=== PATIENT | male | born 1990 | race Caucasian/White ===

== ENCOUNTER 2016-03-15 08:51 | Emergency (ER) | payer SELFPAY ==
--- NOTE | 2016-03-15 10:12 | ER Document Report ---
ED General - General Chief Complaint: Flu Symptoms Stated Complaint: FEVER Mode of Arrival: Ambulatory Information source: Patient Notes: 25-year-old male presents with complaints of body aches dry cough. Pt admits to nausea nd vomiting pt notes gf has influenza; TRAVEL OUTSIDE OF THE [place] IN LAST 30 DAYS: No - HPI Onset: Yesterday Onset/Duration: Sudden Quality of pain: Achy Severity: Mild Pain Level: 1 Associated symptoms: Body/muscle aches, Nausea, Vomiting Exacerbated by: Denies Relieved by: Denies Similar symptoms previously: No Recently seen / treated by doctor: No - Related Data Allergies/Adverse Reactions: No Known Allergies Allergy (Verified 03/15/16 08:58) Past Medical History - Social History Smoking Status: Unknown if Ever Smoked Cigarette use (# per day): No Chew tobacco use (# tins/day): No Smoking Education Provided: No Frequency of alcohol use: Occasional Drug Abuse: None Family History: Reviewed & Not Pertinent Patient has suicidal ideation: No Patient has homicidal ideation: No Renal/ Medical History: Denies: Hx Peritoneal Dialysis Surgical Hx: Negative - Immunizations Hx Diphtheria, Pertussis, Tetanus Vaccination: Yes Review of Systems - Review of Systems Notes: REVIEW OF SYSTEMS: CONSTITUTIONAL : Denies fever, chills, or sweats. Denies recent illness. EENT: Denies eye, ear, throat, or mouth pain or symptoms. Denies nasal or sinus congestion or discharge. Denies throat, tongue, or mouth swelling or difficulty swallowing. CARDIOVASCULAR: Denies chest pain. Denies palpitations or racing or irregular heart beat. Denies ankle edema. RESPIRATORY: Admits nonproductive cough GASTROINTESTINAL: Denies abdominal pain or distention. Denies nausea, vomiting , or diarrhea. Denies blood in vomitus, stools, or per rectum. Denies black, tarry stools. Denies constipation. GENITOURINARY: Denies difficulty urinating, painful urination, burning, frequency, blood in urine, or discharge. MUSCULOSKELETAL: Admits to body aches SKIN: Denies rash, lesions or sores. HEMATOLOGIC : Denies easy bruising or bleeding. LYMPHATIC: Denies swollen, enlarged glands. NEUROLOGICAL: Denies confusion or altered mental status. Denies passing out or loss of consciousness. Denies dizziness or lightheadedness. Denies headache. Denies weakness or paralysis or loss of use of either side. Denies problems with gait or speech. Denies sensory loss, numbness, or tingling. Denies seizures. PSYCHIATRIC: Denies anxiety or stress. Denies depression, suicidal ideation, or homicidal ideation. ALL OTHER SYSTEMS REVIEWED AND NEGATIVE. Dictation was performed using [employer] recognition software PHYSICAL EXAMINATION: GENERAL: Well-appearing, well-nourished and in no acute distress. HEAD: Atraumatic, normocephalic. EYES: Pupils equal round and reactive to light, extraocular movements intact, sclera anicteric, conjunctiva are normal. ENT: Nares patent, oropharynx clear without exudates. Moist mucous membranes. NECK: Normal range of motion, supple without lymphadenopathy LUNGS: Breath sounds clear to auscultation bilaterally and equal. No wheezes rales or rhonchi. HEART: Regular rate and rhythm without murmurs ABDOMEN: Soft, nontender, nondistended abdomen. No guarding, no rebound. No masses appreciated. Musculoskeletal: Normal range of motion, no pitting or edema. No cyanosis. NEUROLOGICAL: Cranial nerves grossly intact. Normal speech, normal gait. Normal sensory, motor exams PSYCH: Normal mood, normal affect. SKIN: Warm, Dry, normal turgor, no rashes or lesions noted. Physical Exam - Vital signs Vitals: Temp Pulse Resp BP Pulse Ox 99.6 F 108 H 18 118/84 97 03/15/16 09:00 03/15/16 09:00 03/15/16 09:00 03/15/16 09:00 03/15/16 09:00 Course - Re-evaluation Re-evalutation: 03/15/16 10:10 Physically patient looks well, is playing on his phone quadrant television. Influenza was positive, patient will be written a prescription for Tamiflu given that symptoms are within 48 hours. Should return precautions provided After performing a Medical Screening Examination, I estimate there is LOW risk for ACUTE CORONARY SYNDROME, RESPIRATORY FAILURE, SEPSIS OR MENINGITIS, thus I consider the discharge disposition reasonable. The patient and I have discussed the diagnosis and risks, and we agree with discharging home with close follow- up. We also discussed returning to the Emergency Department immediately if new or worsening symptoms occur. We have discussed the symptoms which are most concerning (e.g., changing or worsening pain, trouble swallowing or breathing, neck stiffness, fever) that necessitate immediate return. - Vital Signs Vital signs: Temp Pulse Resp BP Pulse Ox 99.6 F 108 H 18 118/84 97 03/15/16 09:00 03/15/16 09:00 03/15/16 09:00 03/15/16 09:00 03/15/16 09:00 Discharge - Discharge Clinical Impression: Influenza A, Body aches Condition: Stable Disposition: HOME, SELF-CARE Instructions: Influenza ([facility]) [id number] Additional Instructions: Follow up with your physician tomorrow for further care or return to the ED IMMEDIATELY if symptoms worsen or new concerns occur Prescriptions: Ondansetron HCl [Zofran 8 mg Tablet] 8 mg PO Q8HP PRN #12 tablet PRN Reason: Oseltamivir Phosphate [Tamiflu] 75 mg PO DAILY #5 capsule Forms: Return to Work
[2016-03-15 10:17] VITALS: BP 129/80
== END 2016-03-15 10:17 | disposition home or self-care (01) ==
LOC: ER 08:51
DX: J11.1 Influenza due to unidentified influenza virus with other respiratory manifestations (principal); R05 Cough; R11.2 Nausea with vomiting, unspecified; M79.1 Myalgia
CPT/HCPCS: 87804; 99283

== ENCOUNTER 2017-06-22 19:22 | Emergency (ER) | payer SELFPAY ==
[2017-06-22] MEDS ORDERED: MECLIZINE HCL 25 MG TABLET PO ONE (19:57)
[2017-06-22] MEDS ORDERED: IBUPROFEN 600 MG TABLET PO ONE (19:57)
--- NOTE | 2017-06-22 20:26 | RADIOLOGY REPORT (SQ) ---
EXAM DESCRIPTION: CHEST 2 VIEWS COMPLETED DATE/TIME: 06/22/2017 8:15 pm REASON FOR STUDY: cough COMPARISON: 11/04/2015 EXAM PARAMETERS: NUMBER OF VIEWS: two views TECHNIQUE: Digital Frontal and Lateral radiographic views of the chest acquired. RADIATION DOSE: NA LIMITATIONS: none FINDINGS: LUNGS AND PLEURA: No opacities, masses or pneumothorax. No pleural effusion. MEDIASTINUM AND HILAR STRUCTURES: No masses or contour abnormalities. HEART AND VASCULAR STRUCTURES: Heart normal size. No evidence for failure. BONES: No acute findings. HARDWARE: None in the chest. OTHER: No other significant finding. IMPRESSION: NO ACUTE RADIOGRAPHIC FINDING IN THE CHEST. TECHNICAL DOCUMENTATION: JOB ID: [id number] [employer]- All Rights Reserved Reading location - IP/workstation name: [email or web address]
--- NOTE | 2017-06-22 20:37 | ER Document Report ---
ED Respiratory Problem - General Chief Complaint: Cough Stated Complaint: DIZZY Time Seen by Provider: 06/22/17 19:48 Mode of Arrival: Ambulatory Information source: Patient TRAVEL OUTSIDE OF THE [place] IN LAST 30 DAYS: No - HPI Patient complains to provider of: Cough Onset: Last week Notes: Patient is here with complaints of cough, dizziness, sinus pain, fever. States that he has been sick for about the last 10 days. Things seem to be progressively getting worse. Now having a lot of coughing spells. He also reports that he is feeling dizzy. He states that if he goes from lying to sitting or sitting to standing he will felt dizzy and feel like he is spinning. This is brief and then resolves itself after a few seconds. It is not a constant problem. He denies any dizziness currently. He does complain of some fullness to his ears. He complains of some sinus pain to his forehead. Denies any blurred or loss vision. He denies any numbness, tingling, weakness. He denies any nausea, vomiting, diarrhea. No abdominal pain. He does complain of a cough and occasional chest pain only with cough. No chest pain currently. No significant shortness of breath. He denies any chronic medical conditions. He is not on any daily medications. He denies smoking cigarettes. He does report smoking marijuana. He denies any other complaints at this time. Nothing seems to make his symptoms better. No recent travel outside the [place]. - Related Data Allergies/Adverse Reactions: No Known Allergies Allergy (Verified 03/15/16 08:58) Past Medical History - Social History Smoking Status: Never Smoker Frequency of alcohol use: Social Drug Abuse: None Family History: Reviewed & Not Pertinent Patient has suicidal ideation: No Patient has homicidal ideation: No Renal/ Medical History: Denies: Hx Peritoneal Dialysis - Immunizations Hx Diphtheria, Pertussis, Tetanus Vaccination: Yes Review of Systems - Review of Systems -: Yes All other systems reviewed and negative Physical Exam - Vital signs Vitals: Temp Pulse Resp BP Pulse Ox 100.2 F 99 18 122/74 98 06/22/17 19:37 06/22/17 19:37 06/22/17 19:37 06/22/17 19:37 06/22/17 19:37 - Notes Notes: GENERAL: alert, cooperative, nontoxic, no distress. HEAD: normocephalic, atraumatic EYES: conjunctiva pink without discharge, no external redness or swelling. Pupils are equal, round, reactive to light. EARS: no external swelling, no external redness. Effusion behind both TMs. No erythema. No perforation. Normal mastoid exam. NOSE: atraumatic, no external swelling. Nasal turbinates erythematous and swollen. Tenderness to percussion of the frontal sinuses. MOUTH/THROAT: mucous membranes moist and pink, posterior pharynx without erythema, swelling, exudate. No trismus or drooling. NECK: soft, supple, full range of motion, no meningismus. CHEST: no distress, lungs clear and equal throughout. No wheezing, rales, rhonchi. CARDIAC: regular rate and rhythm, no murmur, normal capillary refill, normal pulses. No peripheral edema noted. BACK: full range of motion, no CVA tenderness. EXTREMITIES: full range of motion of all extremities. No redness, no swelling. NEURO: alert and oriented x 3, cranial nerves II through XII are grossly intact. Upper and lower extremities are equal throughout. Normal sensation. No focal deficits, full range of motion of all extremities. normal finger to nose. PYSCH: appropriate mood, affect. Patient is cooperative. SKIN: pink, warm, dry, no rash. Course - Re-evaluation Re-evalutation: 06/22/17 20:35 The patient is nontoxic appearing with stable vitals. Is here with multiple complaints. 27-year-old healthy male has had URI type symptoms for about 10 days now. He states that his symptoms seem to be getting worse. Specifically is now having sinus pressure, cough, occasional dizziness with position changes. On exam he is noted to have some frontal sinus tenderness to percussion. His effusions behind both TMs. He has a nonfocal neurological exam. No neck stiffness or signs of meningitis. Lungs are clear. He is not hypoxic. He is in no respiratory distress. Chest x-ray shows no acute abnormality per the radiologist. Do believe that the patient has an acute sinusitis based on his frontal sinus tenderness, the fact that he is now starting to run a temperature of 100.2 and has been sick for 10 days. His dizziness sounds like benign positional vertigo likely secondary to the fluid behind his ears. This point the patient has a nonfocal neurological exam no signs of stroke or posterior cerebral source of his dizziness. Patient was given Antivert and ibuprofen here in emergency department. He will be discharged home on Augmentin for sinusitis, Flonase, Hycodan. Instructed drink lots of fluids. Follow-up if he is not improved in the next 5-7 days, sooner for worsening symptoms, high fever, difficulty breathing or swallowing, constant dizziness, persistent vomiting, neck stiffness, or for any further concerns. The patient's emergency department workup and current diagnosis were explained to the patient and or family. Follow-up instructions were provided. Medications if prescribed were discussed. Instructions for when to return to the emergency department including specific worrisome symptoms were discussed with the patient and/or family. The patient is noted to have elevated blood pressure during today's emergency department visit. The patient was informed of this finding. The patient was instructed that this may be related to pre-hypertension and requires further evaluation with a primary care provider. The patient has no hypertensive symptoms at this time. - Vital Signs Vital signs: Temp Pulse Resp BP Pulse Ox 100.2 F 99 18 122/74 98 06/22/17 19:37 06/22/17 19:37 06/22/17 19:37 06/22/17 19:37 06/22/17 19:37 - Diagnostic Test Radiology reviewed: Image reviewed, Reports reviewed - Negative chest x-ray Discharge - Discharge Clinical Impression: Sinusitis Qualifiers: Sinusitis location: frontal Chronicity: acute Recurrence: non-recurrent Qualified Code(s): J01.10 - Acute frontal sinusitis, unspecified URI (upper respiratory infection) Qualifiers: URI type: unspecified URI Qualified Code(s): J06.9 - Acute upper respiratory infection, unspecified BPV (benign positional vertigo) Qualifiers: Laterality: unspecified laterality Qualified Code(s): H81.10 - Benign paroxysmal vertigo, unspecified ear Condition: Stable Disposition: HOME, SELF-CARE Instructions: Upper Respiratory Illness ([facility]), Viral Syndrome ([facility]), Vertigo ( [facility]), Sinusitis ([facility]) Additional Instructions: Take medications as prescribed. Drink lots of fluids. Follow-up if not better in 5-7 days, sooner for worsening symptoms, high fever, persistent vomiting, constant dizziness, severe difficulty breathing, severe chest pain, or for any further concerns. Your blood pressure was elevated during today's visit. Have this rechecked with your doctor. Prescriptions: Hydrocodone Bit/Homatropine [Hycodan Syrup 5-1.5 mg/5 ml Ud Cup] 5 ml PO Q4HP PRN #120 ml PRN Reason: Amox Tr/Potassium Clavulanate [Augmentin 875-125 Tablet] 1 tab PO BID 10 Days tablet Fluticasone Propionate [Flonase Nasal Warriors Mark 50 Mcg/Warriors Mark 16 gm] 1 spray NASL Q12 #1 inhaler Forms: Elevated Blood Pressure, Smoking Cessation Education Referrals: [facility] [Provider Group] - Follow up as needed
[2017-06-22] MEDS ORDERED: AMOXICILLIN TR/POT CLAVULANATE 500-125 MG TAB PO ONE (20:52)
[2017-06-22] MEDS ORDERED: ACETAMINOPHEN 325 MG TABLET PO ONE (20:52)
[2017-06-22 20:55] VITALS: BP 120/84
== END 2017-06-22 21:03 | disposition home or self-care (01) ==
LOC: ER 19:22
DX: J01.10 Acute frontal sinusitis, unspecified (principal); J06.9 Acute upper respiratory infection, unspecified; H81.10 Benign paroxysmal vertigo, unspecified ear; R05 Cough; R50.9 Fever, unspecified; R03.0 Elevated blood-pressure reading, without diagnosis of hypertension
CPT/HCPCS: 71046; 99284

== ENCOUNTER 2018-06-20 23:29 | Emergency (ER) | payer SELFPAY ==
[2018-06-21] MEDS ORDERED: METOCLOPRAMIDE HCL INJ/PF 10 MG/2 ML SDV IV ONE (02:28)
--- NOTE | 2018-06-21 02:31 | ER Document Report ---
ED Medical Screen (RME) - General Chief Complaint: Headache Stated Complaint: HEADACHE Notes: 28-year-old male, chief complaint of a headache. He states that he was on the phone arguing, states suddenly he had a sharp headache in the front of his head, he states that he vomited twice, he has light sensitivity and sound sensitivity as well. He states he really does not get migraines, he is not diagnosed with migraines. Headache is slightly better now than when it first began at 3 PM. He cannot recall the last time he had a headache. He denies head injury. He denies any diagnosed medical problems. TRAVEL OUTSIDE OF THE [place] IN LAST 30 DAYS: No - Related Data Allergies/Adverse Reactions: No Known Allergies Allergy (Verified 03/15/16 08:58) Past Medical History Renal/ Medical History: Denies: Hx Peritoneal Dialysis - Immunizations Hx Diphtheria, Pertussis, Tetanus Vaccination: Yes Physical Exam - Vital signs Vitals: Temp Pulse Resp BP Pulse Ox 97.7 F 70 20 140/101 H 97 06/20/18 23:41 06/20/18 23:41 06/20/18 23:41 06/20/18 23:41 06/20/18 23:41 - Neurological Neuro grossly intact: Yes Cognition: Normal Orientation: AAOx4 Sebastian Coma Scale Verbal: Oriented Colton Coma Scale Motor: Obeys Commands Speech: Normal Cranial nerves: Normal Cerebellar coordination: Normal Motor strength normal: LUE, RUE, LLE, RLE Course - Re-evaluation Re-evalutation: Headache was maximal at onset, sudden in onset. He has migraine type symptoms now. No history of migraines. Discussed options with patient, decision was made to proceed with CTA (outside of 6-hour window for noncontrast imaging). I have greeted and performed a rapid initial assessment of this patient. A comprehensive ED assessment and evaluation of the patient, analysis of test results and completion of the medical decision making process will be conducted by additional ED providers. - Vital Signs Vital signs: Temp Pulse Resp BP Pulse Ox 97.7 F 70 20 140/101 H 97 06/20/18 23:41 06/20/18 23:41 06/20/18 23:41 06/20/18 23:41 06/20/18 23:41
--- NOTE | 2018-06-21 04:41 | ER Document Report ---
ED Headache - General Chief Complaint: Headache Stated Complaint: HEADACHE Time Seen by Provider: 06/21/18 02:51 Notes: Patient is a 28-year-old male, chief complaint of a headache. He states that he was on the phone arguing, states suddenly he had a sharp headache in the front of his head, he states that he vomited twice, he has light sensitivity and sound sensitivity as well. He states he really does not get migraines, he is not diagnosed with migraines. Headache is slightly better now than when it first began at 3 PM. He cannot recall the last time he had a headache. He denies head injury. He denies any diagnosed medical problems. TRAVEL OUTSIDE OF THE [place] IN LAST 30 DAYS: No - Related Data Allergies/Adverse Reactions: No Known Allergies Allergy (Verified 03/15/16 08:58) Past Medical History - General Information source: Patient - Social History Smoking Status: Never Smoker Chew tobacco use (# tins/day): No Drug Abuse: None Lives with: Friend Family History: Reviewed & Not Pertinent Patient has suicidal ideation: No Patient has homicidal ideation: No Neurological Medical History: Reports: Hx Migraine Renal/ Medical History: Denies: Hx Peritoneal Dialysis - Immunizations Hx Diphtheria, Pertussis, Tetanus Vaccination: Yes Review of Systems - Review of Systems Constitutional: No symptoms reported EENT: No symptoms reported Cardiovascular: No symptoms reported Respiratory: No symptoms reported Gastrointestinal: No symptoms reported Genitourinary: No symptoms reported Male Genitourinary: No symptoms reported Musculoskeletal: No symptoms reported Skin: No symptoms reported Hematologic/Lymphatic: No symptoms reported Neurological/Psychological: See HPI Physical Exam - Vital signs Vitals: Temp Pulse Resp BP Pulse Ox 97.7 F 70 20 140/101 H 97 06/20/18 23:41 06/20/18 23:41 06/20/18 23:41 06/20/18 23:41 06/20/18 23:41 - Notes Notes: GENERAL: Alert, interacts well. Slightly uncomfortable appearing. HEAD: Normocephalic, atraumatic. EYES: Pupils equal, round, and reactive to light. Extraocular movements intact. ENT: Oral mucosa moist, tongue midline. Oropharynx unremarkable. Airway patent. Nares patent, no nasal septal hematoma, TM's intact. NECK: Full range of motion. Supple. Trachea midline. LUNGS: Clear to auscultation bilaterally, no wheezes, rales, or rhonchi. No respiratory distress. HEART: Regular rate and rhythm. No murmur ABDOMEN: Soft, non-tender. Non-distended. Bowel sounds present in all 4 quadrants. GENITOURINARY: Deferred EXTREMITIES: Moves all 4 extremities spontaneously. No edema, normal radial and dorsalis pedis pulses bilaterally. No cyanosis. BACK: no cervical, thoracic, lumbar midline tenderness. No saddle anesthesia, normal distal neurovascular exam. NEUROLOGICAL: Alert and oriented x3. Normal speech. Cranial nerves II through XII grossly intact. PSYCH: Speaks rapidly, slightly anxious SKIN: Warm, dry, normal turgor. No rashes or lesions noted. Course - Re-evaluation Re-evalutation: Because of patient's reported symptoms (sudden onset headache, severe headache, no history of headaches, and worse at symptom onset), discussed with patient and decision was made to perform CTA to help rule out subarachnoid hemorrhage because symptoms have been more than 6 hours in duration. This is performed, shows no acute finding. Patient was given Reglan, after this headache resolved, patient fell asleep. Lumbar puncture was not performed because of symptom resolution. Patient states that he feels like he just got "extremely anxious", he states that he has anxiety "problem", I did offer mental health evaluation but patient declined. He states he actually already has an appointment to follow-up with later this week for this, he denies suicidal ideation or homicidal ideation, he states he feels perfectly safe going home, he states he feels much better now that he had a CAT scan of the head with no concerning findings. Patient has no neurological deficits. He has no headache on my reevaluation. Low suspicion of any intracranial abnormality. Patient was discharged with follow-up instructions and return precautions. He did request something for headaches at home, he was given Fioricet. - Vital Signs Vital signs: Temp Pulse Resp BP Pulse Ox 98.1 F 60 16 127/81 H 98 06/21/18 05:30 06/21/18 05:30 06/21/18 05:30 06/21/18 05:30 06/21/18 05:30 Discharge - Discharge Clinical Impression: Anxiety Headache Qualifiers: Headache type: unspecified Headache chronicity pattern: acute headache Intractability: not intractable Qualified Code(s): R51 - Headache Condition: Stable Disposition: HOME, SELF-CARE Additional Instructions: Your work-up does not show any concerning findings at this time. You can take the prescribed medication if needed for headaches in the future. Follow-up with both your mental health referral and with primary care for additional management of headaches. Return if you worsen including returned or severe headache, vomiting, fever, or any other concerning or worsening symptoms. Prescriptions: Butalb/Acetaminophen/Caffeine [Fioricet (50-325-40 mg) Tablet] 1 tab PO Q4HP PRN #20 tab PRN Reason:
--- NOTE | 2018-06-21 05:16 | RADIOLOGY REPORT (SQ) ---
EXAM DESCRIPTION: CT HEAD ANGIOGRAPHY WITHOUT THEN WITH IV CONTRAST COMPLETED DATE/TME: 06/21/2018 02:27 CLINICAL HISTORY: 28 years, Male, sudden onset(5/7 @ 3PM) severe SARGENT with vomiting COMPARISON: None. TECHNIQUE: Axial CT images of the brain were obtained before and after the administration of IV contrast. MPR and MIP reconstructions were performed. DLP [id number] Images stored on PACS. All CT scanners at this facility use dose modulation, iterative reconstruction, and/or weight based dosing when appropriate to reduce radiation dose to as low as reasonably achievable (ALARA). [facility]: Dose Right [facility]: CareDose [facility]: Dose Right [facility]: Teradose 4D [facility]: [employer] LIMITATIONS: None. FINDINGS: The noncontrast images of the brain demonstrate no cortical infarct, hemorrhage, mass, edema, hydrocephalus, or extra-axial fluid collection. The shields-white matter differentiation is preserved. There is mucosal thickening of the right maxillary sinus. The mastoid air cells are clear. There is no acute fracture. The post contrast images demonstrates suboptimal opacification of the intracranial vasculature, particularly of the basilar artery and right vertebral artery. The intracranial portions of the internal carotid arteries appear unremarkable. No aneurysm or occlusion is identified. There are no areas of abnormal enhancement. There is suboptimal opacification of the deep venous system. No gross abnormality is detected. IMPRESSION: No acute intracranial abnormality. No definite occlusion or aneurysm detected within the [place]. TECHNICAL DOCUMENTATION: Quality ID # [id number]: Final reports with documentation of one or more dose reduction techniques (e.g., Automated exposure control, adjustment of the mA and/or kV according to patient size, use of iterative reconstruction technique) copyright 2011 [employer]- All Rights Reserved
[2018-06-21 05:59] VITALS: BP 127/81
== END 2018-06-21 05:59 | disposition home or self-care (01) ==
LOC: ER 23:29
DX: F41.9 Anxiety disorder, unspecified (principal); R51 Headache; R11.10 Vomiting, unspecified; H53.149 Visual discomfort, unspecified
CPT/HCPCS: 99284; 96374; 70496; J2765

== ENCOUNTER 2019-07-26 01:20 | Emergency (ER) | payer SELFPAY ==
[2019-07-26] MEDS ORDERED: ACETAMINOPHEN 325 MG TABLET PO ONE (02:50)
--- NOTE | 2019-07-26 04:07 | RADIOLOGY REPORT (SQ) ---
EXAM: X-ray elbow three views, left CLINICAL DATA: 29-year-old male fell off skateboard and complained of left elbow pain TECHNICAL DATA: Three x-ray views of the left elbow were performed on 07/26/2019 at 3:43 AM. COMPARISONS: None FINDINGS: There is questionable cortical irregularity of the radial head suspicious for a nondisplaced fracture. Otherwise, no definite additional fractures are identified. The elbow joint is intact. There are no lytic or sclerotic bone lesions. There is no evidence of arthritis or degenerative change. Bone mineralization is normal. There is elevation of the anterior humeral fat pad consistent with a joint effusion. IMPRESSION: 1. Elevation of the anterior humeral fat pad most consistent with a joint effusion. 2. Suspect nondisplaced radial head fracture.
[2019-07-26] MEDS ORDERED: KETOROLAC TROMETHAMINE 60 MG/2 ML SDV IM ONE (05:10)
[2019-07-26] MEDS ORDERED: HYDROCODONE/ACETAMINOPHEN 5-325 MG TABLET PO ONE (05:10)
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
[2019-07-26 06:33] VITALS: BP 138/74
== END 2019-07-26 06:32 | disposition home or self-care (01) ==
LOC: ER 01:20
PROC: 2W39X1Z Immobilization of Left Upper Extremity using Splint (ICD-10-PCS; principal; 2019-07-26)
DX: S52.125A Nondisplaced fracture of head of left radius, initial encounter for closed fracture (principal); S50.312A Abrasion of left elbow, initial encounter; M25.522 Pain in left elbow; V00.131A Fall from skateboard, initial encounter
CPT/HCPCS: 99283; 96372; 73080; 29105; J1885